=== PATIENT | male | born 1935 | race Two or more races ===

== ENCOUNTER → 2016-08-02 | Outpatient (CLI) | payer MEDICARE, OTHER ==
[~2016-08-02] MED LIST: ALBU8HFA4 IH; AMLO-511 PO; ASPI-1093 PO; ATOR80TA76 PO; BENZ-26 PO; CARB1TAB53 PO; CHOL400T33 PO; DOCU250C21 PO; DUTA.5 PO; FLUT16H NASAL; FOLI1 PO; LEVO50 PO; LORA10TA7 PO; LOSA100T8 PO; MELA1TAB9 PO; MEMA28CA PO; MULT1CAP32 PO; NITR0.4T27 SL; RIVA3CAP3 PO; ROPI2 PO; SENN8.6C5 PO; SODI30SP3 NASAL; TAMS0.4C32 PO; TRIAMCINOLONE LOTION TP; UMEC1DIS IH; [UNRECOGNIZED DRUG - OTHER] PR
== END | disposition home or self-care (01) ==
LOC: RADPV 12:11
PROVIDERS: ATTEND Internal Medicine Cardiovascular Disease
DX: I70.0 Atherosclerosis of aorta (principal); R91.8 Other nonspecific abnormal finding of lung field
CPT/HCPCS: 71020

== ENCOUNTER → 2016-08-02 | Outpatient (CLI) | payer MEDICARE, OTHER ==
[~2016-08-02] VITALS: Ht 165.1 cm; Wt 75.0 kg
[2016-08-02 10:53] VITALS: BP 121/62
== END | disposition home or self-care (01) ==
LOC: SRCNTR 10:28
PROVIDERS: ATTEND Internal Medicine Cardiovascular Disease
DX: I10 Essential (primary) hypertension (principal); I25.10 Atherosclerotic heart disease of native coronary artery without angina pectoris; E78.5 Hyperlipidemia, unspecified; B59 Pneumocystosis; I25.5 Ischemic cardiomyopathy
CPT/HCPCS: G0463

== ENCOUNTER → 2016-08-30 | Outpatient (CLI) | payer MEDICARE, OTHER ==
[~2016-08-30] VITALS: Ht 165.1 cm; Wt 76.3 kg
[~2016-08-30] MED LIST changes: -[UNRECOGNIZED DRUG - OTHER] PR
[2016-08-30 10:54] VITALS: BP 144/94
== END | disposition home or self-care (01) ==
LOC: SRCNTR 10:26
PROVIDERS: ATTEND Internal Medicine Cardiovascular Disease
DX: I10 Essential (primary) hypertension (principal); I25.10 Atherosclerotic heart disease of native coronary artery without angina pectoris; I50.1 Left ventricular failure, unspecified; E78.5 Hyperlipidemia, unspecified; J44.9 Chronic obstructive pulmonary disease, unspecified; G23.1 Progressive supranuclear ophthalmoplegia [Steele-Richardson-Olszewski]; I25.5 Ischemic cardiomyopathy
CPT/HCPCS: G0463

== ENCOUNTER → 2016-08-31 | Outpatient (CLI) | payer MEDICARE, OTHER ==
[~2016-08-31] MED LIST changes: -BENZ-26 PO
[2016-08-31 09:36] LABS: BASOPHILS % (AUTO) 0.6 % (0.0-2.0); EOSINOPHILS % (AUTO) 4.3 % (1.0-6.0); HEMATOCRIT 44.8 % (41-53); HEMOGLOBIN 14.7 g/dL (13.5-17.5); LYMPHOCYTES % (AUTO) 25.7 % (22.0-44.0); MEAN CORPUSCULAR HEMOGLOBIN 30.6 pg (26.0-34.0); MEAN CORPUSCULAR HGB CONC 32.9 G/dL (31.0-37.0); MEAN CORPUSCULAR VOLUME 93 fL (80-100); MONOCYTES # (AUTO) 0.6 K/uL (0.1-1.0); MONOCYTES % (AUTO) 7.4 % (2.0-9.0); NEUTROPHILS # (AUTO) 4.9 K/uL (1.8-7.7); PLATELET COUNT (AUTO) 187 K/uL (150-450); RED BLOOD CELL COUNT(AUTO) 4.82 MIL/uL (4.50-5.90); RED CELL DISTRIBUTION WIDTH 13.8 % (11.5-14.5); WHITE BLOOD COUNT (AUTO) 7.8 K/uL (4.5-11.0)
[2016-08-31 10:12] LABS: HEMOGLOBIN A1C 5.8 % (4.5-6.2)
[2016-08-31 10:19] LABS: ALBUMIN 3.8 g/dL (3.4-5.0); BILIRUBIN,TOTAL 0.5 mg/dL (0.1-1.0); CALCIUM, TOTAL 9.2 mg/dL (8.8-10.5); CHOL/HDL RATIO 2.8 (4.2-7.3); CREATININE 1.22 mg/dL (0.60-1.30); POTASSIUM 4.5 mmol/L (3.5-5.1); TOTAL PROTEIN, SERUM 7.7 g/dL (6.4-8.2)
== END | disposition home or self-care (01) ==
LOC: LABPV 07:16
PROVIDERS: ATTEND Internal Medicine Cardiovascular Disease
DX: I10 Essential (primary) hypertension (principal); I25.10 Atherosclerotic heart disease of native coronary artery without angina pectoris; Z79.899 Other long term (current) drug therapy
CPT/HCPCS: 83036

== ENCOUNTER → 2016-09-06 | Outpatient (CLI) | payer MEDICARE, OTHER | END | disposition home or self-care (01) | LOC: RADPV 12:48 | PROVIDERS: ATTEND Internal Medicine Cardiovascular Disease | DX: I50.1 Left ventricular failure, unspecified (principal); I51.7 Cardiomegaly; I31.3 Pericardial effusion (noninflammatory) | CPT/HCPCS: 93306 ==

== ENCOUNTER → 2016-09-29 | Outpatient (CLI) | payer MEDICARE, OTHER ==
[~2016-09-29] VITALS: Ht 165.1 cm; Wt 76.5 kg
[2016-09-29 10:47] VITALS: BP 144/82
== END | disposition home or self-care (01) ==
LOC: SRCNTR 10:24
PROVIDERS: ATTEND Internal Medicine Cardiovascular Disease
DX: I10 Essential (primary) hypertension (principal); E78.5 Hyperlipidemia, unspecified; I25.5 Ischemic cardiomyopathy; G23.1 Progressive supranuclear ophthalmoplegia [Steele-Richardson-Olszewski]
CPT/HCPCS: G0463

== ENCOUNTER → 2016-12-01 | Outpatient (CLI) | payer MEDICARE, OTHER ==
[~2016-12-01] VITALS: Ht 167.6 cm; Wt 79.8 kg
[2016-12-01 10:57] VITALS: BP 121/72
== END | disposition home or self-care (01) ==
LOC: SRCNTR 10:36
PROVIDERS: ATTEND Internal Medicine Cardiovascular Disease
DX: I10 Essential (primary) hypertension (principal); I42.9 Cardiomyopathy, unspecified; E78.5 Hyperlipidemia, unspecified; G23.1 Progressive supranuclear ophthalmoplegia [Steele-Richardson-Olszewski]
CPT/HCPCS: G0463

== ENCOUNTER → 2017-01-25 | Outpatient (CLI) | payer MEDICARE, OTHER ==
[~2017-01-25] VITALS: Ht 165.1 cm; Wt 73.5 kg
[~2017-01-25] MED LIST changes: -MEMA28CA PO; +NITROFURANTOIN PO; -UMEC1DIS IH
[2017-01-25 14:46] VITALS: BP 137/80
== END | disposition home or self-care (01) ==
LOC: SRCNTR 13:58
PROVIDERS: ATTEND Internal Medicine Cardiovascular Disease
DX: I10 Essential (primary) hypertension (principal); I25.5 Ischemic cardiomyopathy; E78.5 Hyperlipidemia, unspecified; N39.0 Urinary tract infection, site not specified; Z79.82 Long term (current) use of aspirin
CPT/HCPCS: G0463

== ENCOUNTER → 2017-03-28 | Outpatient (CLI) | payer MEDICARE, OTHER ==
[~2017-03-28] VITALS: Ht 167.6 cm; Wt 72.0 kg
[~2017-03-28] MED LIST changes: -ASPI-1093 PO; +ASPI-1182 PO; +ATOR-2 PO; -ATOR80TA76 PO; -DOCU250C21 PO; +DOCU250C90 PO; +INFLUENZA VIRUS VACCINE QVS 2017-18 (3YR+)/PF 60 MCG/0.5 ML SYRINGE IM ONE; +LOSA100T2 PO; -LOSA100T8 PO; -NITR0.4T27 SL; +NITR0.4T50 SL
[2017-03-28 10:18] VITALS: BP 116/61
== END | disposition home or self-care (01) ==
LOC: SRCNTR 10:04
PROVIDERS: ATTEND Internal Medicine Cardiovascular Disease
DX: I10 Essential (primary) hypertension (principal); E78.5 Hyperlipidemia, unspecified; I25.5 Ischemic cardiomyopathy; G23.1 Progressive supranuclear ophthalmoplegia [Steele-Richardson-Olszewski]; I25.10 Atherosclerotic heart disease of native coronary artery without angina pectoris; Z79.82 Long term (current) use of aspirin
CPT/HCPCS: 90471; G0463

== ENCOUNTER → 2017-05-28 | Outpatient (CLI) | payer MEDICARE, OTHER ==
[~2017-05-28] VITALS: Ht 165.1 cm; Wt 72.0 kg
[~2017-05-28] MED LIST changes: -INFLUENZA VIRUS VACCINE QVS 2017-18 (3YR+)/PF 60 MCG/0.5 ML SYRINGE IM ONE
[2017-05-28 10:28] VITALS: BP 108/58
== END | disposition home or self-care (01) ==
LOC: SRCNTR 10:14
PROVIDERS: ATTEND Internal Medicine Cardiovascular Disease
DX: I10 Essential (primary) hypertension (principal); E78.5 Hyperlipidemia, unspecified; G20 Parkinson's disease; I25.5 Ischemic cardiomyopathy; Z79.82 Long term (current) use of aspirin; Z88.2 Allergy status to sulfonamides
CPT/HCPCS: G0463

== ENCOUNTER → 2017-08-01 | Outpatient (CLI) | payer MEDICARE, OTHER ==
[2017-08-01 10:25] VITALS: BP 98/50
== END | disposition home or self-care (01) ==
LOC: SRCNTR 10:19
PROVIDERS: ATTEND Internal Medicine Cardiovascular Disease
DX: I10 Essential (primary) hypertension (principal); E78.5 Hyperlipidemia, unspecified; I25.5 Ischemic cardiomyopathy; Z79.82 Long term (current) use of aspirin; Z88.2 Allergy status to sulfonamides
CPT/HCPCS: G0463

== ENCOUNTER → 2017-11-15 | Outpatient (CLI) | payer MEDICARE, OTHER ==
[2017-11-15 14:28] VITALS: BP 128/68
== END | disposition home or self-care (01) ==
LOC: SRCNTR 14:10
PROVIDERS: ATTEND Internal Medicine Cardiovascular Disease
DX: I10 Essential (primary) hypertension (principal); E78.5 Hyperlipidemia, unspecified; I25.5 Ischemic cardiomyopathy; R13.10 Dysphagia, unspecified; W19.XXXA Unspecified fall, initial encounter; Z79.82 Long term (current) use of aspirin; Z88.2 Allergy status to sulfonamides
CPT/HCPCS: G0463

== ENCOUNTER → 2018-01-31 | Outpatient (CLI) | payer MEDICARE, OTHER ==
[~2018-01-31] MED LIST changes: +ACET-784 PO; +ALBU8HFA IH; -ALBU8HFA4 IH; -AMLO-511 PO; -CHOL400T33 PO; +DSSL PO; -DUTA.5 PO; -FLUT16H NASAL; -FOLI1 PO; -LOSA100T2 PO; -NITROFURANTOIN PO; -RIVA3CAP3 PO; -SENN8.6C5 PO; +SILO8CAP PO; -SODI30SP3 NASAL; -TAMS0.4C32 PO; -TRIAMCINOLONE LOTION TP
[2018-01-31 14:52] VITALS: BP 105/67
== END | disposition home or self-care (01) ==
LOC: SRCNTR 14:38
PROVIDERS: ATTEND Internal Medicine Cardiovascular Disease
DX: I25.10 Atherosclerotic heart disease of native coronary artery without angina pectoris (principal); I10 Essential (primary) hypertension; E03.9 Hypothyroidism, unspecified; E78.5 Hyperlipidemia, unspecified
CPT/HCPCS: G0463

== ENCOUNTER → 2018-04-02 | Outpatient (CLI) | payer MEDICARE, OTHER ==
[~2018-04-02] MED LIST changes: -DOCU250C90 PO; +FINA5TAB41 PO; +FLUT16H NASAL; +RIVA1PAT TD; +SENN8.8S6 PO; -SILO8CAP PO; +SILO8CAP2 PO
[2018-04-02 14:51] VITALS: BP 129/77
== END | disposition home or self-care (01) ==
LOC: SRCNTR 14:42
PROVIDERS: ATTEND Internal Medicine Cardiovascular Disease
DX: I25.5 Ischemic cardiomyopathy (principal); I10 Essential (primary) hypertension; E78.5 Hyperlipidemia, unspecified; E03.9 Hypothyroidism, unspecified; G23.1 Progressive supranuclear ophthalmoplegia [Steele-Richardson-Olszewski]
CPT/HCPCS: G0463

== ENCOUNTER → 2018-06-04 | Outpatient (CLI) | payer MEDICARE, OTHER ==
[2018-06-04 14:39] VITALS: BP 132/78
== END | disposition home or self-care (01) ==
LOC: SRCNTR 14:18
PROVIDERS: ATTEND Internal Medicine Cardiovascular Disease
DX: I25.5 Ischemic cardiomyopathy (principal); I10 Essential (primary) hypertension; E78.5 Hyperlipidemia, unspecified; E03.9 Hypothyroidism, unspecified; G23.1 Progressive supranuclear ophthalmoplegia [Steele-Richardson-Olszewski]
CPT/HCPCS: G0463

== ENCOUNTER → 2018-08-13 | Outpatient (CLI) | payer MEDICARE, OTHER ==
[~2018-08-13] MED LIST changes: +BISA5TAB12 PO; +DOXA2TAB PO; +DULCOLAX SUPP; +MULT1TAB66 PO
[2018-08-13 14:40] VITALS: BP 148/90
== END | disposition home or self-care (01) ==
LOC: SRCNTR 14:08
PROVIDERS: ATTEND Internal Medicine Cardiovascular Disease
DX: E78.5 Hyperlipidemia, unspecified (principal); E03.9 Hypothyroidism, unspecified; I10 Essential (primary) hypertension; I42.9 Cardiomyopathy, unspecified; I25.10 Atherosclerotic heart disease of native coronary artery without angina pectoris
CPT/HCPCS: G0463

== ENCOUNTER → 2018-10-17 | Outpatient (CLI) | payer MEDICARE, OTHER ==
[2018-10-17 14:09] VITALS: BP 135/71
== END | disposition home or self-care (01) ==
LOC: SRCNTR 13:56
PROVIDERS: ATTEND Internal Medicine Cardiovascular Disease
DX: I10 Essential (primary) hypertension (principal); I42.9 Cardiomyopathy, unspecified; G23.1 Progressive supranuclear ophthalmoplegia [Steele-Richardson-Olszewski]; I99.8 Other disorder of circulatory system; E03.9 Hypothyroidism, unspecified; E78.5 Hyperlipidemia, unspecified
CPT/HCPCS: G0463

== ENCOUNTER → 2019-06-05 | Outpatient (CLI) | payer MEDICARE, OTHER ==
[~2019-06-05] MED LIST changes: -ASPI-1182 PO; -BISA5TAB12 PO
[2019-06-05 14:50] VITALS: BP 123/69
== END | disposition home or self-care (01) ==
LOC: SRCNTR 14:50
PROVIDERS: ATTEND Internal Medicine Cardiovascular Disease
DX: I42.9 Cardiomyopathy, unspecified (principal); I10 Essential (primary) hypertension; I25.10 Atherosclerotic heart disease of native coronary artery without angina pectoris
CPT/HCPCS: G0463

== ENCOUNTER → 2019-12-17 | Outpatient (CLI) | payer MEDICARE, OTHER ==
[~2019-12-17] MED LIST changes: +FINA-27 PO; -FINA5TAB41 PO; -ROPI2 PO; +ROPI2TAB26 PO
== END | disposition home or self-care (01) ==
LOC: SRCNTR 10:04
PROVIDERS: ATTEND Internal Medicine Cardiovascular Disease
DX: I49.8 Other specified cardiac arrhythmias (principal); I10 Essential (primary) hypertension; E78.5 Hyperlipidemia, unspecified; E03.9 Hypothyroidism, unspecified
CPT/HCPCS: Q3014

== ENCOUNTER → 2020-01-22 | Outpatient (CLI) | payer MEDICARE, OTHER | END | disposition home or self-care (01) | LOC: SRCNTR 14:19 | PROVIDERS: ATTEND Internal Medicine Cardiovascular Disease | DX: R04.2 Hemoptysis (principal); I49.9 Cardiac arrhythmia, unspecified; I10 Essential (primary) hypertension; E78.5 Hyperlipidemia, unspecified; E03.9 Hypothyroidism, unspecified | CPT/HCPCS: Q3014 ==

== ENCOUNTER → 2020-03-04 | Outpatient (CLI) | payer MEDICARE, OTHER | END | disposition home or self-care (01) | LOC: SRCNTR 14:47 | PROVIDERS: ATTEND Internal Medicine Cardiovascular Disease | DX: G23.1 Progressive supranuclear ophthalmoplegia [Steele-Richardson-Olszewski] (principal); I10 Essential (primary) hypertension; E78.5 Hyperlipidemia, unspecified; E03.9 Hypothyroidism, unspecified; I25.5 Ischemic cardiomyopathy; Z88.8 Allergy status to other drugs, medicaments and biological substances; Z79.899 Other long term (current) drug therapy | CPT/HCPCS: Q3014 ==

== ENCOUNTER → 2020-03-19 | Outpatient (CLI) | payer MEDICARE, OTHER | END | disposition home or self-care (01) | LOC: SRCNTR 10:16 | PROVIDERS: ATTEND Internal Medicine Cardiovascular Disease | DX: E78.5 Hyperlipidemia, unspecified (principal); E03.9 Hypothyroidism, unspecified; I10 Essential (primary) hypertension; I25.5 Ischemic cardiomyopathy; G23.1 Progressive supranuclear ophthalmoplegia [Steele-Richardson-Olszewski] | CPT/HCPCS: Q3014 ==

== ENCOUNTER → 2020-05-17 | Outpatient (CLI) | payer MEDICARE, OTHER | END | disposition home or self-care (01) | LOC: SRCNTR 10:54 | PROVIDERS: ATTEND Internal Medicine Cardiovascular Disease | DX: I25.5 Ischemic cardiomyopathy (principal); I10 Essential (primary) hypertension; J18.8 Other pneumonia, unspecified organism; E78.5 Hyperlipidemia, unspecified; E03.9 Hypothyroidism, unspecified; G23.1 Progressive supranuclear ophthalmoplegia [Steele-Richardson-Olszewski] | CPT/HCPCS: Q3014 ==